=== PATIENT | female | born 1980 | race Caucasian/White ===

== ENCOUNTER 2023-04-09 09:12 | Outpatient (CLI) | payer MEDICAID, SELFPAY ==
--- NOTE | 2023-04-09 09:20 | MM_ITS ---
WS: [id number] DIAGNOSTIC BILATERAL DIGITAL BREAST TOMOSYNTHESIS MAMMOGRAPHY WITH CAD RIGHT breast ultrasound, limited. HISTORY: NIPPLE DISCHARGE RIGHT COMPARISON: None available. TECHNIQUE: Bilateral craniocaudad, mediolateral oblique, and mediolateral views are submitted with to mosynthesis and SM. Spot compression RIGHT CC. Computer aided detection utilized. Breast composition: There are scattered areas of fibroglandular density. No masses or distortion. Nor mal appearance of each breast. No nipple retraction. RIGHT breast ultrasound: Limited. Ultrasound is directed to the RIGHT areolar and subareolar region at the nipple discharge site. There is no dilated ducts. No masses or distortion. No nipple retraction. IMPRESSION: MM/[place] [id number] BI-RADS: 1-Negative FOLLOW UP: 1 Year Follow-up
--- NOTE | 2023-04-09 10:01 | US_ITS ---
WS: [id number] DIAGNOSTIC BILATERAL DIGITAL BREAST TOMOSYNTHESIS MAMMOGRAPHY WITH CAD RIGHT breast ultrasound, limited. HISTORY: NIPPLE DISCHARGE RIGHT COMPARISON: None available. TECHNIQUE: Bilateral craniocaudad, mediolateral oblique, and mediolateral views are submitted with to mosynthesis and SM. Spot compression RIGHT CC. Computer aided detection utilized. Breast composition: There are scattered areas of fibroglandular density. No masses or distortion. Nor mal appearance of each breast. No nipple retraction. RIGHT breast ultrasound: Limited. Ultrasound is directed to the RIGHT areolar and subareolar region at the nipple discharge site. There is no dilated ducts. No masses or distortion. No nipple retraction. IMPRESSION: US/US breast RT limited* [id number] BI-RADS: 1-Negative FOLLOW UP: 1 Year Follow-up
== END 2023-04-09 09:13 | disposition home or self-care (01) ==
LOC: RAD 09:12
PROVIDERS: Visit Provider Family Medicine
DX: N64.52 Nipple discharge (principal)
CPT/HCPCS: 76642; 77062; G0279

== ENCOUNTER 2023-06-19 07:42 | Outpatient (CLI) | payer MEDICAID, SELFPAY ==
--- NOTE | 2023-06-19 07:53 | MR_ITS ---
WS: [id number] MRI RIGHT KNEE HISTORY: R KNEE PAIN COMPARISON: None available. Anterior cruciate ligament: Intact. Posterior cruciate ligament: Intact. Medial collateral ligament: Intact. Posterior lateral corner structures: Intact. Medial menisci: Intact. Normal signal, size and shape. Lateral meniscus: Intact. Normal signal, size and shape. Extensor mechanism: Distal quadriceps tendon is normal. There is a very tiny amount of increased sign al in the proximal patellar tendon at the attachment to the patella. Fluid and soft tissue: No joint effusion. Small lobulated Llanos's cyst. Osseous and articular structures: Patellofemoral compartment: Normal. Medial compartment: Normal. Lateral compartment: Moderate amount of marrow edema in the lateral tibial plateau. There is a small osteochondral defect measuring 3 mm towards the intercondylar notch. There is loss of the normal surf beau of the tibial plateau separate from this more focal osteochondral lesion. There is surface irregu larity extends over a width of at least 2.0 cm. Changes involving the tibial plateau are predominantl y anterior. IMPRESSION: 1. Marrow edema with loss of the normal cortex and an osteochondral lesion involving the lateral tibi al plateau, most anterior. Probably posttraumatic. 2. Normal ACL. No meniscal tear. 3. Small Llanos's cyst.
== END 2023-06-19 07:43 | disposition home or self-care (01) ==
LOC: RAD 07:43
PROVIDERS: Visit Provider Family Medicine
DX: M25.561 Pain in right knee (principal); R93.6 Abnormal findings on diagnostic imaging of limbs; M71.21 Synovial cyst of popliteal space [Baker], right knee
CPT/HCPCS: 73721

== ENCOUNTER 2025-02-05 08:49 | Emergency (ER) | payer SELFPAY ==
[2025-02-05 09:04] VITALS: BP 133/85; PULSE 75; RESP 17; TEMP 36.5; O2SAT 96; BMI 35.5
--- NOTE | 2025-02-05 09:15 | W.ED.ALLEREA ---
HPI - Allergic Reaction General: Chief complaint: Allergic Reaction Stated complaint: eyes swollen shut Time Seen by Provider: 02/05/25 09:02 Source: patient Mode of arrival: ambulatory Limitations: no limitations History of Present Illness: HPI narrative: 44-year-old female states she had been pulling weeds yesterday had some aria that her states was poison [place]. She states this morning she woke up with rash to her face with severe pruritus she has got swelling of her eyes she does not take any meds at home denies any pain Associated symptoms: Deny abdominal pain, nausea or vomiting Related Data Previous Rx's ?Medication ?Instructions ?Recorded diphenhydramine HCl 25 mg tablet 25 - 50 mg (1 - 2 x 25 mg) PO Q8H 09/30/22 (Allergy (diphenhydramine)) PRN itching #30 tabs mupirocin 2 % topical ointment 1 applic topical TID #15 grams 09/30/22 sulfamethoxazole 800 1 tab PO BID 7 days #14 tabs 09/30/22 mg-trimethoprim 160 mg tablet (Bactrim DS) methylprednisolone 4 mg tablets in See Rx Instructions PO .COMPLEX 02/05/25 a dose pack (Medrol (Chintan)) #21 ea Allergies Allergy/AdvReac Type Severity Reaction Status Date / Time No Known Allergies Allergy Unverified 09/30/22 12:22 Review of Systems Const: Denies: fever(s), chills, body aches or change in appetite Eyes: Reports: eye discomfort ENMT: Denies: throat pain or dental pain Card: Denies: chest pain Resp: Denies: dyspnea GI: Denies: abdominal pain, nausea, vomiting or diarrhea Skin/Breast: Reports: rash and pruritus Neuro: Denies: headache(s) Psych: Denies: depression Physical Exam Const: COMMON NORMALS: no acute distress, patient oriented x3 and healthy appearing HENMT: COMMON NORMALS: normocephalic and atraumatic HEAD & SCALP: normocephalic and atraumatic Neck/C-Spine: COMMON NORMALS: full ROM and supple Chest: COMMONS NORMALS: normal inspection of the chest Resp: COMMON NORMALS: normal respiratory effort Cardio: COMMON NORMALS: regular rate RATE: regular rate Extremity: COMMON NORMALS: normal to inspection and full ROM Neuro: COMMON NORMALS: patient oriented x3, moves all extremities and no focal motor deficits Psych: COMMON NORMALS: mental status grossly normal, Normal thought process present and cooperative THOUGHT PROCESS: Normal thought process present Skin: COMMON NORMALS: no wounds NARRATIVE SKIN EXAM: Rash noted to face consistent with a contact dermatitis no signs of cellulitis Course Vital Signs: Vital signs: Vital Signs Temperature 97.7 F 02/05/25 09:04 Pulse Rate 75 02/05/25 09:04 Respiratory Rate 17 02/05/25 09:04 Blood Pressure 133/85 02/05/25 09:04 Pulse Oximetry 96 02/05/25 09:04 Oxygen Delivery Me thod Room Air 02/05/25 09:04 MDM - Allergic Reaction Medical Decision Making Patient presents for contact dermatitis to face did give her steroid she is well-appearing here no signs of eye involvement or cellulitis she stable for discharge return if worsening No radiology studies performed this visit Discharge Plan Discharge Patient Disposition: Home Clinical Impression: Contact dermatitis Condition: Stable Prescriptions: New methylprednisolone [Medrol (Chintan)] 4 mg tablets,dose pack See Rx Instructions .ROUTE .COMPLEX Qty: 21 0RF Rx Instructions: for 6 days No Action sulfamethoxazole-trimethoprim [Bactrim DS] 800-160 mg tablet 1 tab PO BID 7 Days Qty: 14 0RF mupirocin 2 % ointment 1 applic topical TID Qty: 15 0RF diphenhydramine HCl [Allergy (diphenhydramine)] 25 mg tablet 25 - 50 mg PO Q8H PRN (Reason: itching) Qty: 30 0RF Discharge Orders: Discharge ED (Routine); Ordered 02/05/25 Ordered By: Kerri Bhatt Discharge Diet: Advance as tolerated Discharge Activity: Resume usual activity Patient Instructions: Contact Dermatitis (ED) Print Language: Emirati Coding Level of Care Code ED 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
[2025-02-05] MEDS: triamcinolone 40 mg/mL SDV 80 MG IM (09:27)
== END 2025-02-05 09:51 | disposition home or self-care (01) ==
PROVIDERS: Emergency Provider Emergency Medicine
DX: L25.5 Unspecified contact dermatitis due to plants, except food (principal)
CPT/HCPCS: 96372; 99284; J1100; J3301